=== PATIENT | female | born 1980 | race African-American/Black ===

== ENCOUNTER 2024-03-24 04:20 | Emergency (ER) | payer SELFPAY ==
[~2024-03-24] VITALS: Ht 182.9 cm; Wt 78.0 kg
[2024-03-24 04:26] VITALS: O2SAT 96
[2024-03-24 05:51] LABS: BASOPHILS % 0.7 % (0.0-2.0); DIFFERENTIAL COMMENT 0; EOSINOPHILS % 7.2 % (0.0-5.0); LYMPHOCYTES % 22.8 % (20.0-50.0); MEAN CORPUSCULAR HEMOGLOBIN 25.6 pg (28.0-32.0); MEAN CORPUSCULAR HGB CONC 32.4 g/dL (31.0-37.0); MEAN CORPUSCULAR VOLUME 78.9 fL (81.0-99.0); MEAN PLATELET VOLUME 8.4 fl (7.4-10.4); MONOCYTES % 10.5 % (2.0-8.0); NEUTROPHILS % 58.8 % (40.0-76.0); PLATELET 276 x1000/uL (130-400); RED BLOOD CELL COUNT 4.31 mill/uL (4.2-5.4); RED CELL DISTRIBUTION WIDTH 15.4 % (11.6-14.6); WHITE BLOOD COUNT 6.9 x1000/uL (4.5-11.0)
[2024-03-24 05:56] LABS: CARBON DIOXIDE 28 mEq/L (21-32)
[2024-03-24 05:57] LABS: CALCIUM 9.1 mg/dL (8.7-10.4)
[2024-03-24 06:01] LABS: CREATININE 0.9 mg/dL (0.6-1.0)
[2024-03-24 06:02] LABS: GLUCOSE 94 mg/dL (70-105)
[2024-03-24 06:03] LABS: ALANINE AMINOTRANSFERASE 15 IU/L (10-49); ALBUMIN 4.2 g/dL (3.2-4.8); ASPARTATE AMINOTRANSFERASE 25 IU/L (<34)
[2024-03-24 06:04] LABS: BILIRUBIN DIRECT 0.1 mg/dL (<=3.0); BILIRUBIN TOTAL 0.3 mg/dL (0.1-1.0); PROTEIN TOTAL 7.1 g/dL (6.0-8.3)
[2024-03-24 06:40] LABS: CHLORIDE 107 mEq/L (98-107); SODIUM 140 mEq/L (136-145)
[2024-03-24 06:47] LABS: CARBAMAZEPINE < 0.4 ug/mL (4-12); ETHANOL BLOOD < 10 mg/dL (<10); PHENYTOIN < 2.0 ug/mL (10-20); UREA NITROGEN BLOOD 9 mg/dL (9-23); VALPROIC ACID < 3.0 ug/mL (50-100)
[2024-03-24] MEDS: POTASSIUM CHLORIDE 20MEQ TABLET SR PO ONE (09:08)
[2024-03-24 13:21] VITALS: BP 132/68; PULSE 59; RESP 10; TEMP 36.66960; O2SAT 100
== END 2024-03-24 14:06 | disposition home or self-care (01) ==
LOC: ER 04:20
DX: G40.909 Epilepsy, unspecified, not intractable, without status epilepticus (principal); J45.909 Unspecified asthma, uncomplicated
CPT/HCPCS: 80076; 80048; 80320; 80156; 80185; 82962; 80165; 85025; 36415; 99285; Z7610 ×2; G0480